=== PATIENT | male | born 1940 | race Caucasian/White ===

== ENCOUNTER 2017-06-29 07:01 | Outpatient (CLI) | payer OTHER ==
[~2017-06-29 07:01] MED LIST: D3 + K2 DOTS 11 EACH; DIABETA1.25 MG; FINASTERIDE5 MG; GLYBURIDE5 MG; LEVOTHYROXINE50 MCG; MEDROLPACK PO; METFORMIN HCL500 MG; TAMS0.4C; ZANTAC 7575 MG; ZYRTEC10 M3 PO
== END 2017-06-29 07:08 | disposition home or self-care (01) ==
LOC: RX STUDY 07:01
DX: R13.19 Other dysphagia (principal); K22.2 Esophageal obstruction

== ENCOUNTER 2017-08-11 07:58 | Outpatient (CLI) | payer OTHER | END 2017-08-11 08:26 | disposition home or self-care (01) | LOC: NUCLEAR 07:58 | DX: C61 Malignant neoplasm of prostate (principal); R97.20 Elevated prostate specific antigen [PSA]; R31.21 Asymptomatic microscopic hematuria | CPT/HCPCS: 78306; 78320; A9503 ==

== ENCOUNTER 2017-08-12 07:24 | Outpatient (CLI) | payer OTHER | END 2017-08-12 17:00 | disposition home or self-care (01) | LOC: TOM 07:24 | DX: R97.20 Elevated prostate specific antigen [PSA] (principal); R31.21 Asymptomatic microscopic hematuria; C61 Malignant neoplasm of prostate; N40.1 Benign prostatic hyperplasia with lower urinary tract symptoms ==

== ENCOUNTER 2017-09-08 10:12 | Outpatient (CLI) | payer OTHER | END 2017-09-08 10:27 | disposition home or self-care (01) | LOC: LAB 10:12 | DX: R97.20 Elevated prostate specific antigen [PSA] (principal) ==

== ENCOUNTER 2017-09-29 07:32 | Outpatient (CLI) | payer OTHER | END 2017-09-29 07:36 | disposition home or self-care (01) | LOC: SONOGRAMA 07:32 | DX: R97.20 Elevated prostate specific antigen [PSA] (principal) ==

== ENCOUNTER 2017-10-29 07:29 | Outpatient (CLI) | payer OTHER | END 2017-10-29 10:01 | disposition home or self-care (01) | LOC: TOM 07:29 | DX: C61 Malignant neoplasm of prostate (principal) ==

== ENCOUNTER 2018-06-09 09:23 | Outpatient (CLI) | payer OTHER | END 2018-06-09 09:45 | disposition home or self-care (01) | LOC: LAB 09:23 | DX: M13.0 Polyarthritis, unspecified (principal); M15.0 Primary generalized (osteo)arthritis; K72.90 Hepatic failure, unspecified without coma ==

== ENCOUNTER 2019-02-23 10:25 | Outpatient (CLI) | payer OTHER | END 2019-02-23 10:31 | disposition home or self-care (01) | LOC: LAB 10:25 | DX: R13.14 Dysphagia, pharyngoesophageal phase (principal) ==

== ENCOUNTER 2019-03-01 07:27 | Outpatient (CLI) | payer OTHER | END 2019-03-01 07:43 | disposition home or self-care (01) | LOC: TOM 07:27 | DX: R13.14 Dysphagia, pharyngoesophageal phase (principal) | CPT/HCPCS: 70491; 74230; Q9965 ==

== ENCOUNTER 2019-06-25 07:34 | Emergency (ER) | payer OTHER ==
[~2019-06-25] VITALS: Ht 175.3 cm; Wt 83.5 kg
[2019-06-25] MEDS ORDERED: TAMS0.4C PO (08:12)
[2019-06-25] MEDS ORDERED: REVATIO10 MG/1 ML (08:13)
[2019-06-25] MEDS ORDERED: XIGDUO XR 5 MG1 EAC1 PO (08:13)
== END 2019-06-25 09:20 | disposition home or self-care (01) ==
LOC: ER 07:34
DX: R42 Dizziness and giddiness (principal); T50.995A Adverse effect of other drugs, medicaments and biological substances, initial encounter; E11.9 Type 2 diabetes mellitus without complications

== ENCOUNTER 2020-10-10 11:25 | Outpatient (CLI) | payer OTHER ==
[~2020-10-10 11:25] MED LIST changes: +REVATIO10 MG/1 ML; +TAMS0.4C PO; +XIGDUO XR 5 MG1 EAC1 PO
== END 2020-10-10 18:50 | disposition home or self-care (01) ==
LOC: LAB 11:25
PROVIDERS: ATTEND Radiology Diagnostic Radiology
DX: N20.0 Calculus of kidney (principal)

== ENCOUNTER 2020-10-15 08:22 | Outpatient (CLI) | payer OTHER | END 2020-10-15 08:33 | disposition home or self-care (01) | LOC: TOM 08:22 | PROVIDERS: ATTEND Radiology Diagnostic Radiology | DX: D69.49 Other primary thrombocytopenia (principal) | CPT/HCPCS: 74177; Q9965 ==

== ENCOUNTER 2024-07-13 12:32 | Outpatient (CLI) | payer OTHER | END 2024-07-13 12:38 | disposition home or self-care (01) | LOC: RAD 12:32 | DX: M54.2 Cervicalgia (principal); M54.6 Pain in thoracic spine; M54.59 Other low back pain; M25.551 Pain in right hip; M25.552 Pain in left hip ==

== ENCOUNTER → 2024-08-22 | Outpatient (CLI) | payer OTHER | END | disposition home or self-care (01) | LOC: RAD 09:09 | DX: M25.541 Pain in joints of right hand (principal); M25.542 Pain in joints of left hand ==